=== PATIENT | female | born 1995 | race Two or more races ===

== ENCOUNTER → 2018-07-23 10:34 | Outpatient (CLI) | payer OTHER | END | disposition home or self-care (01) | LOC: LAB 10:34 | DX: E28.2 Polycystic ovarian syndrome (principal); E28.1 Androgen excess; E25.0 Congenital adrenogenital disorders associated with enzyme deficiency; E13.69 Other specified diabetes mellitus with other specified complication; E22.1 Hyperprolactinemia; N39.0 Urinary tract infection, site not specified; E03.8 Other specified hypothyroidism; N93.8 Other specified abnormal uterine and vaginal bleeding; N94.6 Dysmenorrhea, unspecified; E55.9 Vitamin D deficiency, unspecified; Z12.11 Encounter for screening for malignant neoplasm of colon; R19.09 Other intra-abdominal and pelvic swelling, mass and lump; R97.1 Elevated cancer antigen 125 [CA 125] ==

== ENCOUNTER 2019-04-11 09:30 | Outpatient (CLI) | payer OTHER | END 2019-04-11 09:38 | disposition home or self-care (01) | LOC: LAB 09:30 | DX: E78.2 Mixed hyperlipidemia (principal); D50.8 Other iron deficiency anemias ==

== ENCOUNTER → 2019-08-20 | Outpatient (CLI) | payer OTHER | END | disposition home or self-care (01) | LOC: LAB 10:52 | PROVIDERS: ATTEND Pediatrics | DX: E03.8 Other specified hypothyroidism (principal); E78.2 Mixed hyperlipidemia ==

== ENCOUNTER 2024-04-30 18:45 | Emergency (ER) | payer OTHER ==
[~2024-04-30] VITALS: Ht 167.6 cm; Wt 72.6 kg
[2024-04-30] MEDS ORDERED: FAMOTIDINE/PF 20 MG/2 ML VIAL ONE (19:56)
[2024-04-30] MEDS ORDERED: ONDANSETRON HCL 2 MG/ML VIAL ONE (19:56)
[2024-04-30] MEDS ORDERED: ONDANSETRON HCL 2 MG/ML VIAL IV ONE (20:00)
[2024-04-30] MEDS ORDERED: FAMOtidine 10 MG/ML (4ML VIAL) IV ONE (20:00)
[2024-04-30 20:20] LABS: HEMATOCRIT 42.6 % (36.0-45.00); MEAN CELL VOLUME 85.5 fL (80.00-100.00); MEAN CORPUSCULAR HEMOGLOBIN 28.2 pg (27.00-32.0); PLATELET COUNT 306 K/uL (150-450); RED BLOOD COUNT 4.98 M/uL (4.00-6.00); RED CELL DISTRIBUTION WIDTH 14.6 % (11.5-14.5)
[2024-04-30 21:13] LABS: ALBUMIN 3.9 gm/dL (3.4-5.0); ALKALINE PHOSPHATASE 101 U/L (50-136); ALT/SGPT 22 U/L (12-78); ANION GAP 10 (10.0-20.0); AST/SGOT 17 U/L (15-37); BILIRUBIN TOTAL 0.32 mg/dL (0.3-1.2); BLOOD UREA NITROGEN 9 mg/dL (7-18); BUN CREA RATIO 13 (7.0-25.0); CALCIUM 9.2 mg/dL (8.5-10.1); CARBON DIOXIDE 31 mEq/L (21-32); CHLORIDE 106 mmol/L (98-107); CREATININE SERUM 0.67 mg/dL (0.55-1.02); GFR 106.39; GLOBULINA 3.6 G/DL (2.4-3.5); GLUCOSE FASTING 97 mg/dL (65-100); OSMOLALITY SERUM 284 MOSM/KG (275-295); POTASSIUM 3.71 mEq/L (3.5-5.1); SODIUM 143 mmol/L (136-145); TOTAL PROTEIN 7.5 gm/dL (6.4-8.2)
[2024-04-30 21:15] LABS: HCG QUANTITATIVE < 1 mUI/mL (1-3)
[2024-04-30] MEDS ORDERED: ZOFRAN8 MG PO (21:45)
[2024-04-30] MEDS ORDERED: PEPCID AC20 MG PO (21:45)
[2024-04-30] MEDS ORDERED: PROBIOTIC1 EAC2 PO (21:45)
== END 2024-04-30 21:49 | disposition home or self-care (01) ==
LOC: ER 18:48
PROVIDERS: General Practice
DX: K29.70 Gastritis, unspecified, without bleeding (principal); R19.7 Diarrhea, unspecified; R11.0 Nausea; I49.8 Other specified cardiac arrhythmias; J45.909 Unspecified asthma, uncomplicated; Z20.822 Contact with and (suspected) exposure to COVID-19

== ENCOUNTER 2024-06-30 16:20 | Emergency (ER) | payer OTHER ==
[~2024-06-30] VITALS: Ht 167.6 cm; Wt 78.9 kg
[~2024-06-30 16:20] MED LIST: PEPCID AC20 MG PO; PROBIOTIC1 EAC2 PO; ZOFRAN8 MG PO
[2024-06-30] MEDS ORDERED: FAMOtidine 10 MG/ML (4ML VIAL) IV ONE (17:30)
[2024-06-30] MEDS ORDERED: LevETIRAcetam 500 MG/5 ML VIAL IV ONE (17:30)
[2024-06-30 17:46] LABS: BASO % 0.8 % (0.1-1.2); EOS # 0.24 (0.04-0.54); EOS % 3.7 % (0.7-7.0); HEMATOCRIT 42.2 % (34.1-44.9); LYMPH # 2.08 (1.18-3.74); LYMPH % 32.2 % (19.3-53.1); MEAN CORPUSCULAR HEMOGLOBIN 27.6 pg (25.6-32.2); MONO # 0.64 (0.24-0.82); MONO % 9.9 % (4.7-12.5); NEUT # 3.44 (1.56-6.13); NEUT % 53.2 % (34.0-71.1); PLATELET COUNT 283 K/uL (163-369); RED BLOOD COUNT 5.07 M/uL (3.93-5.22); RED CELL DISTRIBUTION WIDTH 13.5 % (11.6-14.4)
[2024-06-30 18:15] LABS: INR 1.05; PARTIAL THROMBOPLASTIN TIME 31.3 SECONDS (22.0-34.0); PROTHROMBIN TIME 11.4 SECONDS (9.0-11.5)
[2024-06-30 18:38] LABS: ALBUMIN 3.9 gm/dL (3.4-5.0); ALKALINE PHOSPHATASE 84 U/L (50-136); ALT/SGPT 20 U/L (12-78); ANION GAP 11 (10.0-20.0); AST/SGOT 38 U/L (15-37); BILIRUBIN TOTAL 0.43 mg/dL (0.3-1.2); BLOOD UREA NITROGEN 8 mg/dL (7-18); BUN CREA RATIO 11 (7.0-25.0); CALCIUM 9.3 mg/dL (8.5-10.1); CARBON DIOXIDE 27 mEq/L (21-32); CHLORIDE 110 mmol/L (98-107); CREATININE SERUM 0.74 mg/dL (0.55-1.02); GFR 94.86; GLOBULINA 3.3 G/DL (2.4-3.5); GLUCOSE FASTING 75 mg/dL (65-100); OSMOLALITY SERUM 280 MOSM/KG (275-295); POTASSIUM 5.84 mEq/L (3.5-5.1); SODIUM 142 mmol/L (136-145); TOTAL PROTEIN 7.2 gm/dL (6.4-8.2)
[2024-06-30 18:41] LABS: HCG QUANTITATIVE < 1 mUI/mL (1-3)
[2024-06-30 21:20] LABS: PH,URINE 7.5 (5.0-8.0); URINE APPEARANCE Cloudy; URINE BILIRRUBIN Negative (NEGATIVE); URINE BLOOD Negative; URINE COLOR Yellow; URINE GLUCOSE Negative (NEGATIVE); URINE KETONE 15 (NEGATIVE); URINE LEUKOCYTE Moderate; URINE NITRATE Negative; URINE PROTEIN Trace (NEGATIVE)
[2024-06-30 21:23] LABS: URINE BACTERIA 5515.1 uL (0.0-1933); URINE RBC 39.6 uL (0.0-20.8); URINE WBC 73.6 uL (0.0-23.2)
[2024-06-30 21:43] LABS: URINE CAST 0.88 uL (0.0-1.40); URINE CRYSTALS NEGATIVE /HPF; URINE MUCUS HEAVY; URINE YEAST NEGATIVE /hpf
[2024-06-30] MEDS ORDERED: BACTRIM DS TAB1 EACH PO (21:56)
[2024-06-30] MEDS ORDERED: KETOROLAC TROMETHAMINE 60 MG VIAL IM ONE (22:00)
== END 2024-06-30 22:07 | disposition home or self-care (01) ==
LOC: ER 16:23
PROVIDERS: General Practice
DX: S09.8XXA Other specified injuries of head, initial encounter (principal); W10.8XXA Fall (on) (from) other stairs and steps, initial encounter; Y93.89 Activity, other specified; Y92.89 Other specified places as the place of occurrence of the external cause; Y99.8 Other external cause status